=== PATIENT | female | born 1940 | race Caucasian/White ===

== ENCOUNTER 2020-05-14 14:57 | Emergency (ER) | payer OTHER, BC ==
[~2020-05-14] VITALS: Ht 172.7 cm; Wt 81.2 kg
[2020-05-14 15:05] VITALS: BP_SYST 122
[2020-05-14 16:00] VITALS: BP_SYST 122
== END 2020-05-14 16:00 | disposition home or self-care (01) ==
LOC: SED 14:57
DX: S62.001A Unspecified fracture of navicular [scaphoid] bone of right wrist, initial encounter for closed fracture (principal); I10 Essential (primary) hypertension; E03.9 Hypothyroidism, unspecified; I48.91 Unspecified atrial fibrillation; Z88.1 Allergy status to other antibiotic agents; Z88.8 Allergy status to other drugs, medicaments and biological substances; X58.XXXA Exposure to other specified factors, initial encounter; Y93.89 Activity, other specified; Y92.89 Other specified places as the place of occurrence of the external cause; Y99.8 Other external cause status
CPT/HCPCS: 99283